=== PATIENT | female | born 1955 | race Caucasian/White ===

== ENCOUNTER 2024-01-06 06:35 | Day surgery (SDC) | payer MEDICARE, OTHER, SELFPAY ==
[2024-01-06 07:26] VITALS: BMI 51.1
[2024-01-06 07:27] VITALS: BMI 51.1
[2024-01-06 07:28] VITALS: BP 126/68
[2024-01-06] MEDS: PRED FORTE 1% EYE DROPS 1 DROP OPHTH (07:29)
[2024-01-06] MEDS: ALCAINE 0.5% EYE DROPS 2 DROP OPHTH (07:29)
[2024-01-06] MEDS: CYCLOGYL 1% EYE DROPS 1 DROP OPHTH (07:30)
[2024-01-06] MEDS: MYDRIACYL 1 DROP OPHTH (07:30)
[2024-01-06] MEDS: POLYTRIM OPHTHALMIC SOLUTION 1 DROP OPHTH (07:31)
[2024-01-06] MEDS: NEO-SYNEPHRINE 2.5% OPH SOL. 1 DROP OPHTH (07:31)
[2024-01-06] MEDS: AKTEN OPHTHALMIC GEL 1 ML OPHTH (07:32)
[2024-01-06] MEDS: ACUVAIL 3 DROPS OPHTH (07:32)
[2024-01-06] MEDS: NORMOSOL-R 1000 IV (07:34)
[2024-01-06 08:54] VITALS: BP 128/68
== END 2024-01-06 09:20 | disposition home or self-care (01) ==
LOC: SDS 06:35
PROVIDERS: ATTENDING PHYSICIAN Ophthalmology
DX: H25.811 Combined forms of age-related cataract, right eye (principal)
CPT/HCPCS: 66984; V2632

== ENCOUNTER 2024-09-05 22:28 | Observation (INO) | payer MEDICARE, OTHER, SELFPAY ==
[2024-09-05] VITALS (7 sets, daily range): BP systolic 160–213; BP diastolic 66–121; BMI 53.2
[2024-09-05 18:48] LABS: % Basophils 0.8 % (0-2); % Immature Granulocytes 0.3 % (0-0.5); % Lymphocytes 19.6 % (20.5-51.1); % Monocytes 6.8 % (1.7-9.3); % Neutrophils 72.5 % (42.2-75.2); Absolute Basophils 0.1 10^3/uL (0-0.2); Absolute Lymphocytes 1.3 10^3/uL (1.2-3.4); Absolute Monocytes 0.4 10^3/uL (0.1-0.6); Absolute Neutrophils 4.6 10^3/uL (1.4-6.5); Hematocrit 40.6 % (37.0-47.0); Hemoglobin 13.5 g/dL (12.0-16.0); Mean Corp Hgb Conc. 33.3 g/dL (33.0-37.0); Mean Corpuscular Hgb 30.5 pg (27.0-31.0); Mean Corpuscular Volume 91.6 fL (81.0-99.0); Mean Platelet Volume 9.4 fL (7.4-10.4); Nucleated Red Blood Cells % 0 %; Platelet Count 184 10^3/uL (130-400); Red Blood Cell Count 4.43 10^6/uL (4.20-5.40); Red Cell Dist. Width 12.7 % (11.5-14.5); White Blood Cell Count 6.4 10^3/uL (4.8-10.8)
[2024-09-05 19:01] LABS: ALT (SGPT) 15 U/L (0-35); AST (SGOT) 23 U/L (14-36); Albumin 4.3 g/dl (3.5-5.0); Alkaline Phosphatase 99 U/L (38-126); Blood Urea Nitrogen 14 mg/dl (7-17); Calcium 9.2 mg/dl (8.4-10.2); Carbon Dioxide 34 mmol/L (22-30); Chloride 100 mmol/L (98-107); Estimated Creatinine Clearance 110 ml/min; Glucose 101 mg/dl (70-99); Lipase 84 U/L (23-300); Potassium 3.6 mmol/L (3.5-5.1); Sodium 141 mmol/L (135-145); Total Bilirubin 0.7 mg/dl (0.2-1.3); Total Protein 6.5 g/dl (6.3-8.2); eGFR > 60.00
--- NOTE | 2024-09-05 19:08 | ED.GENMED ---
History of Present Illness
General
Chief Complaint: Chest Pain
Source: patient
Exam Limitations: none
Time Seen by Provider: 09/05/24 18:33
History of Present Illness
History of Present Illness:
68-year-old female with about 3 hours of vague chest discomfort. Some radiation to the neck bilaterally. Also had some shortness of breath with exertion coming into the ER. Started at rest 3 hours ago. Continuous in nature. Nonpleuritic. No
shearing or back pain. No history of similar episodes. She does have a known 4 cm ascending aortic aneurysm. This has been monitored.
Past History
Past History
ED Past Medical History: Arrthythmia (PAF), HTN, Hypercholesterolemia, Hypothyroidism, Other (OA) and Other (Selective IgA deficiency, ascending thoracic aortic aneurysm); Negative CAD
ED Past Surgical History: Cholecystectomy, Gynecological (total hysterectomy 2009) and Orthopedic
Social History
Tobacco: Non-smoker
Alcohol: None
Drug: None
Personal:
Living: with family
Employment: Employed
Family History
Family History: CAD; Negative Early CAD
Review of Systems
Review of Systems
All Other Systems: Not applicable
Constitutional: Denies fever or chills
Respiratory: Denies cough
ABD/GI: Reports no symptoms
Phy Exam
Physical Exam
Physical Exam:
GENERAL: Alert and oriented in no apparent distress
EYE: Orbits normal.
NECK: Supple
CARDIAC: Regular rate and rhythm without any obvious murmurs.
LUNGS: Clear breath sounds,normal
ABDOMEN: Soft, without focal tenderness or distention. Elevated BMI
NEUROLOGICAL: Alert and oriented , grossly non-focal
SKIN: Warm and dry, no rash or lesion, no discoloration, skin intact.
MUSCULOSKELETAL: No edema,no deformity.Good color
PSYCH: Normal and appropriate interaction.
Scores
Heart Score for Chest Pain Patients
STEMI patient?: No
History: Moderately Suspicious
ECG: Normal
Age: >/= 65 years
Risk Factors: 1 or 2 Risk Factors
Troponin: >1 - <3 x Normal Limit
Heart Score for Chest Pain Patients: 5
Heart Score Risk: 20.3% MACE over next 6 weeks
Course
Orders/Labs/Results
Orders:
Orders
09/05/24 17:40
Electrocardiogram (*1) Urgent
Reason for Study: Chest Pain
EKG- Treatment ONCE
09/05/24 18:40
Complete Blood Count/With Diff Urgent
Comprehensive Metabolic Panel Urgent
Lipase Urgent
Comment: ADD ON
Troponin I Urgent
09/05/24 18:48
Add On- LAB Urgent
Tests Added?: lipase
CT Chest Angio W/wo Iv Contras Urgent
Comment:
Reason For Exam: Chest pain to neck. History of aneurysm
09/05/24 20:37
Morphine Sulfate 2 mg IV NOW STA
09/05/24 22:13
Admit/Transfer Patient As Directed
Co-Sign Provider:
Level of Care: Observation services
Assign to:: Telemetry
Physician / Group: tess
Diagnosis: chest pain
Reason for Telemetry: Chest Pain syndromes
Date to Stop Telemetry: 09/07/24
Time to Stop Telemetry: 11:00
09/05/24 22:14
PRN Pain Medication Management As Directed
May give lesser potent ordered pain med per pt: Yes
preference::
Protocol:: Medication orders for pain may be administered in a
manner that supports deferring to patient preference
when the pt is:
- Requesting an ordered lesser potent pain medication.
Least to most potent pain medications are defined
as: acetaminophen < NSAID < tramadol < opioids
(morphine, oxycodone, hydromorphone).
- Requesting a lesser dose of the same medication IF
ORDERED.
- Requesting a less intrusive route of administration
if both routes are prescribed by the provider (PO <
IV).
09/05/24 22:15
Code Status As Directed
Resuscitation Status: Full Code
09/05/24 22:18
Sulfasalazine [Azulfidine] 1,000 mg PO ONCE ONE
09/05/24 22:21
EKG [Electrocardiogram (*1)] Urgent
Reason for Study: Chest Pain
Other Reason for Exam: REPEAT
Troponin I Urgent
09/05/24 22:22
EKG- Treatment ONCE
09/07/24 11:00
DC Protocol for Telemetry ONCE
Abnormal Lab Results
09/05/24
18:40
Lymphocytes % 19.6 L %
(20.5-51.1)
Carbon Dioxide 34 H mmol/L
(22-30)
Glucose 101 H mg/dl
(70-99)
09/05/24 18:40
09/05/24 18:40
Vital Signs
Initial and Last Documented VS:
Initial Vital Signs
Temp Pulse Resp BP Pulse Ox
97.9 F 71 20 213/121 96
09/05/24 17:45 09/05/24 17:45 09/05/24 17:45 09/05/24 17:45 09/05/24 17:45
Last Documented Vital Signs
Temp Pulse Resp BP Pulse Ox
97.9 F 61 16 160/78 92
09/05/24 17:45 09/05/24 21:00 09/05/24 20:35 09/05/24 21:00 09/05/24 21:00
MDM/Problems Addressed
Differential Diagnosis Includes:
68-year-old female with ongoing chest discomfort rating to the neck. Cardiac workup in progress. EKG is unchanged. Troponin pending. Moderately concerning symptoms with the chest discomfort and shortness of breath with exertion. Also needs a CT
scan to evaluate her aneurysm.
*Radiology
Radiology exam reviewed: radiology read reviewed (He is stable.)
*Pulse Oximetry
Patient hypoxic: no
*EKG
Interpreted by ED Provider?: Yes
Interpretation: abnormal
Comparison EKG: no changes
Heart Rate: 63
Rate: normal
Rhythm: sinus
[place]: normal axis
Interval: normal interval
QRS Pattern: left vent hypertrophy
Ischemia: non-specific ST changes
*Critical Care Note
Total Time (30-74mins, 75-104mins- exclusive of procedures): Not Applicable
Data Reviewed
Review of Other/Old Records Reveals: Labs, Records and Testing
Update Note
Update Note:
Prolonged chest pain with radiation to the jaw and neck and exertional shortness of breath. Stable aneurysm. Patient will be admitted for further care
ED Attending Note
-
Portions of this chart may have been created with voice recognition software.� Occasional wrong word or��sound alike� substitutions may have occurred due to the inherent limitations of voice recognition software.
Discharge Plan
Departure
Patient Disposition: Admit
Date of Disposition: 09/05/24
Time of Disposition: 21:50
Presentation/result/management discussed w/ accepting MD/DO: Hospitalist
Prescriptions:
No Action
levothyroxine [Synthroid] 125 MCG tablet
125 mcg PO DAILY
Rx Instructions:
requires Name Brand
cetirizine [Zyrtec] 10 mg Tablet
10 mg PO HS
esomeprazole magnesium 40 mg Capsule,Delayed Release(Dr/Ec)
40 mg PO DAILY
sulfasalazine 500 mg Tablet
1,000 mg PO BID
diphenhydramine HCl [Benadryl] 25 mg Capsule
25 mg PO HS
potassium chloride 10 mEq Tablet Extended Release
10 meq PO BID
acetaminophen [Tylenol Extra Strength] 500 mg Tablet
1,000 mg PO Q6HPRN PRN (Reason: mild pain)
cyanocobalamin (vitamin B-12) 1,000 mcg/mL Solution
1,000 mcg SC QMONTH
spironolactone 50 mg Tablet
50 mg PO DAILY
spironolactone 50 mg Tablet
50 mg PO DAILYPRN PRN (Reason: high BP)
Systane (PF) 0.4-0.3 % Dropperette
1 drp BOTH EYES Q4HPRN PRN (Reason: dry eyes)
cholecalciferol (vitamin D3) 1,250 mcg (50,000 unit) Tablet
1,250 mcg PO POTTS
Eliquis 5 mg Tablet
5 mg PO BIDPRN PRN (Reason: afib attack)
Metamucil 3.4 gram/5.4 gram Powder
1 tsp PO DAILYPRN PRN (Reason: constipation)
Interventions
Interventions:
*Risk Screen - Suicide Last Done: 09/05/24 17:45
*General Assessment Last Done: 09/05/24 17:45
*Neglect/Abuse Screening Last Done: 09/05/24 17:45
*ED COVID-19 Vaccine History Last Done: 09/05/24 18:31
ED- Cardiac Assessment Last Done: 09/05/24 18:33
Discharge Date and Time
Print Language: FAROESE
[2024-09-05 19:14] LABS: Troponin I < 0.012 ng/ml
[2024-09-05] MEDS: MORPHINE SULFATE 2 MG IV (20:42)
--- NOTE | 2024-09-05 21:52 | HPS.HSE ---
Family Physician
-
Family Physician: MOODY Gross
Chief Complaint
-
chest pain
History of Present Illness
68-year-old female with PMH for PAF, hypertension, hyperlipidemia, hypothyroidism, IgA deficiency, ascending thoracic aortic aneurysm presented to us with mid sternum chest discomfort, mid back pain radiating to her neck to her ER and had for past
few hours. Patient stated short of breath as if she was walking into the room today. Denied blurry vision, numbness, tingling. Patient denied any pain, nausea, vomiting, diarrhea. Patient denied dysuria hematuria.
CTA with impression of no acute aortic syndrome. Stable aneurysm of ascending thoracic aorta. Small bilateral pulmonary nodules and right upper lobe nodule.
Patient received morphine in the ER. Admitting for further management
Medical History
Past Medical History
Past Medical History: Reports Other
Additional Past Medical History:
Hypothyroidism
Hyperaldosteronism
IgA immunodeficiency
Sleep apnea
Ascending aortic aneurysm
Hyperlipidemia
Paroxysmal A-fib
Systolic murmur
Hypertension
Hemochromatosis
Past Surgical History: Reports Other
Additional Past Surgical History:
Bilateral knee replacement
Cataract right eye surgery
Cholecystectomy
Left oophorectomy total hysterectomy
Carpal tunnel release
Social History
Tobacco: Non-smoker
Alcohol: None
Drug: None
Personal:
Living: With Family
Family History
Family History: Not pertinent
Allergies / Home Medications
Allergies reflects when Allergies were last updated in [facility].
Home Medications with original date entered in [facility]
Allergy/Medication List:
Allergies
Allergy/AdvReac Type Severity Reaction Status Date / Time
hydroxychloroquine Allergy Mild Rash Verified 01/06/24 07:24
erythromycin base Allergy Hives Verified 01/06/24 07:24
metoprolol [From Toprol XL] Allergy Rash Verified 01/06/24 07:24
Home Medications
levothyroxine 125 mcg tablet (Synthroid) 125 mcg PO DAILY 12/17/09
cetirizine 10 mg tablet (Zyrtec) 10 mg PO HS 05/22/22
esomeprazole magnesium 40 mg capsule,delayed release 40 mg PO DAILY 05/22/22
diphenhydramine HCl 25 mg capsule (Benadryl) 25 mg PO HS 01/02/24
sulfasalazine 500 mg tablet 1,000 mg PO BID 01/02/24
acetaminophen 500 mg tablet (Tylenol Extra Strength) 1,000 mg PO Q6HPRN PRN mild pain 09/05/24
apixaban 5 mg tablet (Eliquis) 5 mg PO BIDPRN PRN afib attack 09/05/24
cholecalciferol (vitamin D3) 1,250 mcg (50,000 unit) tablet 1,250 mcg PO POTTS 09/05/24
cyanocobalamin (vitamin B-12) 1,000 mcg/mL injection solution 1,000 mcg SC QMONTH 09/05/24
peg 400-propylene glycol (PF) 0.4 %-0.3 % eye drops in a dropperette (Systane (PF)) 1 drp BOTH EYES Q4HPRN PRN dry eyes 09/05/24
potassium chloride 10 mEq tablet,extended release 10 meq PO BID 09/05/24
psyllium husk 3.4 gram/5.4 gram oral powder (Metamucil) 1 tsp PO DAILYPRN PRN constipation 09/05/24
spironolactone 50 mg tablet 50 mg PO DAILY 09/05/24
spironolactone 50 mg tablet 50 mg PO DAILYPRN PRN high BP 09/05/24
Review of Systems
-
Constitutional: Reports No Symptoms
EENT: Reports No Symptoms
Respiratory: Reports Trouble Breathing
Cardiac: Reports Chest Pain
Abdomen/GI: Reports No Symptoms
: Reports No Symptoms
Musculoskeletal: Reports Other (Back pain)
Skin: Reports No Symptoms
Neurological: Reports No Symptoms
Endocrine: Reports No Symptoms
Hematologic/Lymphatic: Reports No Symptoms
Psych: Reports No Symptoms
Physical Exam
Vital Signs
Vital Signs
Temp Pulse Resp BP Pulse Ox
97.9 F 61 16 160/78 92
09/05/24 17:45 09/05/24 21:00 09/05/24 20:35 09/05/24 21:00 09/05/24 21:00
Physical Exam
General: Well Developed, Well Nourished and No Apparent Distress
HEENT: NormoCephalic, Moist mucous membranes and Atraumatic
Respiratory: Clear
Cardiac: S1/S2 and Regular Rhythm; No Murmur or Rub
GI: Soft, Non Tender, Non Distended and Normal Bowel Sounds; No Organomegaly
Rectal: Deferred by Provider
Musculoskeletal: No Clubbing, No Cyanosis and No Edema
Skin: No Rash
Neuro: AO x 3 and Nonfocal/grossly intact
Psych: Calm
Laboratory Results
-
09/05/24 18:40
09/05/24 18:40
Laboratory Results
Total Bilirubin 0.7 mg/dl (0.2-1.3) 09/05/24 18:40
AST 23 U/L (14-36) 09/05/24 18:40
ALT 15 U/L (0-35) 09/05/24 18:40
Alkaline Phosphatase 99 U/L (38-126) 09/05/24 18:40
Troponin I < 0.012 ng/ml 09/05/24 18:40
Lipase 84 U/L (23-300) 09/05/24 18:40
Data Reviewed
-
CT Scan: Report Reviewed by me
Lab Data: Labs Reviewed by me
Impression/Plan
-
#chest pain/sob
-trop 0.012
-CT chest angio No acute aortic syndrome. Fusiform aneurysmal dilatation of the ascending thoracic aorta measuring up to 4.2 cm (previously 3.8 cm).
2. Small bilateral pulmonary nodules including a new 4.5 mm pleural-based right upper lobe nodule, probably benign. If the patient is considered high risk, an optional follow-up noncontrast CT chest can be obtained in 12 months. The [place]
[facility] Pulmonary Nodule Advisory Board will be notified.
-EKG with NSR
-Trend troponin
-BNP added
# Paroxysmal atrial fibs
-Eliquis continued
# GERD
-PPI continued
# Hypothyroidism
-Levothyroxine continued
# Essential hypertension
-Spironolactone continued
# Rheumatoid arthritis
-Sulfasalazine continued
# DVT prophylaxis
-On Eliquis
# CODE STATUS
-Full code
[2024-09-05 23:06] LABS: NT-proBNP 279 pg/ml; Troponin I < 0.012 ng/ml
[2024-09-05] MEDS: AZULFIDINE 1000 MG PO (23:09)
[2024-09-05] MEDS: KCL 10 MEQ PO (23:12)
--- NOTE | 2024-09-05 23:55 | W.PN.UPDATE ---
Update Note
Progress Note Update
Attending addendum
68-year-old woman with history of
PAF,
hypertension,
hyperlipidemia,
hypothyroidism,
IgA deficiency,
ascending thoracic aortic aneurysm
Comes in with mid sternum chest discomfort, mid back pain radiating to her neck. She also started to have short of breath with short activity. She denies blurry vision, numbness, tingling, any pain, nausea, vomiting, diarrhea. Patient denied
dysuria hematuria. She is comfortable at rest. In the ED, the CTA showed:
impression of no acute aortic syndrome.
Stable aneurysm of ascending thoracic aorta.
Small bilateral pulmonary nodules and right upper lobe nodule.
Patient received morphine in the ER.
Past Medical History
Hypothyroidism
Hyperaldosteronism
IgA immunodeficiency
Sleep apnea
Ascending aortic aneurysm
Hyperlipidemia
Paroxysmal A-fib
Systolic murmur
Hypertension
Hemochromatosis
Past Surgical History: Reports Other
Additional Past Surgical History:
Bilateral knee replacement
Cataract right eye surgery
Cholecystectomy
Left oophorectomy total hysterectomy
Carpal tunnel release
Physical Exam
General: Well Developed, Well Nourished and No Apparent Distress
HEENT: NormoCephalic, Moist mucous membranes and Atraumatic
Respiratory: Clear
Cardiac: S1/S2 and Regular Rhythm; No Murmur or Rub
Psych: Calm
Impression/Plan
1. chest pain/sob - no obvious current signs of ACS
ORLIN
Tele
Please see midlevel note for full details on the following:
Paroxysmal atrial fibs
GERD
Hypothyroidism
Essential hypertension
Rheumatoid arthritis
DVT prophylaxis
[2024-09-06 00:16] VITALS: BP 161/89; BMI 53.2
[2024-09-06] MEDS: ZYRTEC 10 MG PO (01:01)
[2024-09-06] MEDS: BENADRYL 25 MG PO (01:01)
[2024-09-06] MEDS: TYLENOL 650 MG PO (01:01)
[2024-09-06 02:19] LABS: Troponin I < 0.012 ng/ml
[2024-09-06 03:49] VITALS: BP 159/83
[2024-09-06 05:06] LABS: Hematocrit 37.3 % (37.0-47.0); Hemoglobin 12.5 g/dL (12.0-16.0); Mean Corp Hgb Conc. 33.5 g/dL (33.0-37.0); Mean Corpuscular Hgb 30.9 pg (27.0-31.0); Mean Corpuscular Volume 92.1 fL (81.0-99.0); Mean Platelet Volume 9.8 fL (7.4-10.4); Platelet Count 160 10^3/uL (130-400); Red Blood Cell Count 4.05 10^6/uL (4.20-5.40); Red Cell Dist. Width 12.8 % (11.5-14.5); White Blood Cell Count 5.3 10^3/uL (4.8-10.8)
[2024-09-06 05:33] LABS: HDL Cholesterol 52 mg/dl; LDL Cholesterol, Calculated 146 mg/dl; Total Cholesterol 213 mg/dl (50-199); Triglyceride 79 mg/dl (10-149); Very Low Density Lipoprotein 15 mg/dl (0-30)
[2024-09-06 05:41] LABS: Troponin I < 0.012 ng/ml
[2024-09-06 06:00] VITALS: BMI 53.2
[2024-09-06] MEDS: SYNTHROID 125 MCG PO (06:09)
[2024-09-06 07:47] VITALS: BP 125/67
[2024-09-06] MEDS: PROTONIX 40 MG PO (08:16)
[2024-09-06] MEDS: ALDACTONE 50 MG PO (08:17)
[2024-09-06] MEDS: KCL 10 MEQ PO (08:18)
[2024-09-06] MEDS: AZULFIDINE 1000 MG PO (08:19)
--- NOTE | 2024-09-06 10:22 | CM ---
Patient seen bedside, initial assessment completed. Patient resides with her in a multiple story home, two-three steps to enter through garage. Patient denies use of DME, reports VN in past after knee surgery, denies SNF history. Patient
confirms PCP uLpe Mccain, pharmacy [facility] in [place], confirms prescription coverage. Patient denies insecurities in the home. LINDO form reviewed, refused to sign, placed in chart, patient provided with copy. Patient hopeful for discharge
today. CM will continue to follow for all discharge planning needs.
Plan; home no needs likely.
[2024-09-06 11:28] VITALS: BP 140/74
[2024-09-06 12:21] LABS: Glycohemoglobin (HgbA1c) 4.8 % (4.0-5.6)
--- NOTE | 2024-09-06 13:17 | W.PN.HOSP.TC ---
Today's Communication/Plan
-
Discharge
Outpatient follow-up with vascular surgery
Try extra dose of esomeprazole for recurrent symptoms
Assessment / Plan
Assessment / Plan
#Chest pain
-Suspect related to GERD symptoms versus MSK; no signs of ACS, PE, dissection on workup
-Troponin negative x 3, EKG negative x 3; CTA unremarkable
-Symptomatically improved spontaneously overnight
-Encourage extra dose of his omeprazole at home for recurrent symptoms
#Ascending thoracic aortic aneurysm
-Previously 3.8 cm on imaging, CTA here showed 4.2 cm TAA
-CTA did not show any signs of acute aortic syndrome
-Spoke with vascular surgeon, no intervention needed while here
-Will encourage vascular surgery follow-up, should have repeat TTE or CT in 6 months to a year
#Paroxysmal atrial fibrillation
-Home medications include Eliquis (patient states that she takes it as needed)
-Encouraged her to take Eliquis twice daily and follow-up with her director for beauty school and PCP
#Hyperaldosteronism
#Hypertension
-Diagnosed outpatient with abnormal renin/aldosterone ratio, started on Aldactone
-Did have elevated blood pressure upon arrival though likely response to pain and stress
-Blood pressure currently well-controlled on home regimen as of this morning
#Hypothyroidism
-Stable on home levothyroxine dose
#IgA deficiency
-No signs of infections at this time
DVT prophylaxis: Lovenox
Diet: Regular
CODE STATUS: Full code
Anticipated Discharge: Today
Subjective/Interval History
-
Date of Service: September 06, 2024
Seen and examined at bedside. No acute events overnight. AFVSS this morning, no acute events per telemetry.
She states that her chest discomfort is a 1-2/10, much improved from yesterday. States that her symptoms started when she was bending over and picking up different items from the floor. She questions if that worsened her acid reflux symptoms,
though they typically improve with Pepcid which did not occur at this time
Denies any other acute complaints including dyspnea, fevers or chills, GI issues, urinary issues, bleeding or bruising, paresthesias or weakness, lightheadedness, palpitations
Objective Data
-
Labs:
Laboratory Results
09/06/24
04:49
WBC 5.3
Hgb 12.5
Hct 37.3
Plt Count 160
Vital Signs:
Vital Signs
Temp Pulse Resp BP Pulse Ox
98.5 F 63 20 140/74 94
09/06/24 11:28 09/06/24 11:28 09/06/24 11:28 09/06/24 11:28 09/06/24 11:28
I&O
09/05/24 09/06/24 09/07/24
06:59 06:59 06:59
Intake Total 240 / 240
Balance 240 / 240
Review of Systems
-
History Source: Patient
All other systems: Reviewed and negative
Physical Exam
-
General: Well Developed, No Apparent Distress, Comfortable and Morbidly Obese
HEENT: Normocephalic, Atraumatic and Moist Mucous Membranes
Respiratory: Clear to Auscultation and Non Labored Respirations
Cardiac: Regular Rhythm and S1/S2; Negative Murmur, Rub or Gallop
GI: Soft, Nontender, Nondistended and Normal Bowel Sounds
Musculoskeletal: No Clubbing, No Cyanosis, No Edema and Other (No tenderness to chest wall)
Skin: Warm, Dry and Normal Turgor; Negative Rash
Neuro: AO x 3 and Nonfocal/Grossly Intact
Psych: Calm
Data Reviewed
-
Labs: Labs Reviewed by me and Discussed with Patient
--- NOTE | 2024-09-06 13:56 | W.DCSUMMARY ---
Discharge Summary
Discharge Data
Date of Admission: 09/05/24
Date of Discharge: 09/06/24
-
Pending Results: No
Hospital Course
68-year-old female with paroxysmal AF on Eliquis, thoracic aortic aneurysm, hyperaldosteronism, hypothyroidism, hemoglobin ptosis, IgA deficiency, rheumatoid arthritis, obesity that presented with chest pain. Troponin and ECG negative x 4.
Improved after morphine and time. No recurrence after initial improvement. Imaging on arrival with CTA ruled out acute aortic syndrome, no sign of pulmonary emboli. Vascular surgery reviewed imaging, showed TAA increase in size from 3.8 to 4.2
cm. Recommended outpatient follow-up. Lipid panel here showed elevated LDL at 146. Started atorvastatin. Recommended outpatient follow-up with vascular surgery and PCP. Encouraged her to take extra dose of esomeprazole if symptoms recurred
Discharge Plan
-
Patient Disposition: Home (Routine Discharge)
Discharge Diagnosis/Procedures: Nonspecific chest pain (possibly acid reflux)
Thoracic Aortic Aneurysm
Condition: Good
Diet: Low Fat and No added salt
Activity: As tolerated
Driving Restrictions: No driving for 24 hours
Bathing Restrictions: None
Blood Work: None
Others Tests: Sleep study with Pulmonology
Activity Restrictions/Additional Instructions:
Schedule follow-up appointment with your family doctor and press breaker within 7 days of discharge from the hospital
Call your family doctor/press breaker the day after discharge and confirm that you should only take Eliquis NEEDED instead of TWICE DAILY
Pulmonology referral provided, please contact their office to schedule sleep study
Referral for vascular surgery provided if you do not have a vascular surgeon. You should follow-up with your vascular surgeon or referral provided within 1 month to monitor your thoracic aortic aneurysm
Instructions: Chest pain
Referrals:
Lupe Mccain CRNP [Family Provider] -
Cody Oliveira III, MD [Active] - in one month
Parish Raman MD [Active] - in one to two weeks
Additional Discharge Medication Instructions: Take an extra dose of esomeprazole if you get recurrent symptoms or breakthrough acid reflux symptoms
Contact family doctor or press breaker to confirm your eliquis dosing
Start atorvastatin 20 mg nightly
Prescriptions:
New
atorvastatin 20 mg tablet
20 mg PO HS 30 Days Qty: 30 0RF
Continued
levothyroxine [Synthroid] 125 MCG tablet
125 mcg PO DAILY
Rx Instructions:
requires Name Brand
cetirizine [Zyrtec] 10 mg Tablet
10 mg PO HS
esomeprazole magnesium 40 mg Capsule,Delayed Release(Dr/Ec)
40 mg PO DAILY
sulfasalazine 500 mg Tablet
1,000 mg PO BID
diphenhydramine HCl [Benadryl] 25 mg Capsule
25 mg PO HS
potassium chloride 10 mEq Tablet Extended Release
10 meq PO BID
acetaminophen [Tylenol Extra Strength] 500 mg Tablet
1,000 mg PO Q6HPRN PRN (Reason: mild pain)
cyanocobalamin (vitamin B-12) 1,000 mcg/mL Solution
1,000 mcg SC QMONTH
spironolactone 50 mg Tablet
50 mg PO DAILY
spironolactone 50 mg Tablet
50 mg PO DAILYPRN PRN (Reason: high BP)
Systane (PF) 0.4-0.3 % Dropperette
1 drp BOTH EYES Q4HPRN PRN (Reason: dry eyes)
cholecalciferol (vitamin D3) 1,250 mcg (50,000 unit) Tablet
1,250 mcg PO POTTS
Eliquis 5 mg Tablet
5 mg PO BIDPRN PRN (Reason: afib attack)
Metamucil 3.4 gram/5.4 gram Powder
1 tsp PO DAILYPRN PRN (Reason: constipation)
Discharge Orders:
Discharge Patient (As Directed); Ordered 09/06/24
Ordered By: Kev Burrell
Discharge Date and Time
Print Language: [place] CITIZ[place]
[2024-09-06 15:57] VITALS: BP 124/83
== END 2024-09-06 16:05 | disposition home or self-care (01) ==
LOC: 4 WEST ACU 22:28
PROVIDERS: Emergency Medicine; Registered Nurse; ADMITTING PHYSICIAN Internal Medicine; ATTENDING PHYSICIAN Internal Medicine; EMERGENCY PHYSICIAN Emergency Medicine; FAMILY PHYSICIAN Nurse Practitioner Family
DX: R07.89 Other chest pain (principal); R06.02 Shortness of breath; I71.21 Aneurysm of the ascending aorta, without rupture; I48.0 Paroxysmal atrial fibrillation; I10 Essential (primary) hypertension; E78.00 Pure hypercholesterolemia, unspecified; E03.9 Hypothyroidism, unspecified; M06.9 Rheumatoid arthritis, unspecified; K21.9 Gastro-esophageal reflux disease without esophagitis; D80.2 Selective deficiency of immunoglobulin A [IgA]; M19.90 Unspecified osteoarthritis, unspecified site; M54.6 Pain in thoracic spine; R91.8 Other nonspecific abnormal finding of lung field; E66.01 Morbid (severe) obesity due to excess calories; E26.9 Hyperaldosteronism, unspecified; G47.30 Sleep apnea, unspecified; E83.119 Hemochromatosis, unspecified; Z90.710 Acquired absence of both cervix and uterus; Z90.49 Acquired absence of other specified parts of digestive tract; Z82.49 Family history of ischemic heart disease and other diseases of the circulatory system; Z86.79 Personal history of other diseases of the circulatory system; Z79.890 Hormone replacement therapy; Z79.01 Long term (current) use of anticoagulants; Z96.653 Presence of artificial knee joint, bilateral; Z88.1 Allergy status to other antibiotic agents; Z88.8 Allergy status to other drugs, medicaments and biological substances; Z68.43 Body mass index [BMI] 50.0-59.9, adult
CPT/HCPCS: 71275; 80053; 80061; 83036; 83690; 83880; 84484; 85025; 85027; 93005; 96374; 99285; Q9967